=== PATIENT | female | born 1940 | race Caucasian/White ===

== ENCOUNTER 2017-05-21 15:54 | Emergency (ER) | payer MEDICARE ==
[2017-05-21] MEDS ORDERED: PROPOFOL 10 MG/ML 20ML VIAL IV ONE (16:25)
== END 2017-05-21 18:16 | disposition home or self-care (01) ==
LOC: EDH 15:54
DX: S73.004A Unspecified dislocation of right hip, initial encounter (principal); I10 Essential (primary) hypertension; E78.5 Hyperlipidemia, unspecified; Z88.2 Allergy status to sulfonamides; X58.XXXA Exposure to other specified factors, initial encounter; Y93.89 Activity, other specified; Y92.89 Other specified places as the place of occurrence of the external cause; Y99.8 Other external cause status
CPT/HCPCS: 27250; 72170; 73501; 96360; 96361; 99152; 99153; 99285; J2704

== ENCOUNTER 2019-05-18 10:59 | Observation (INO) | payer MEDICARE ==
[2019-05-18] VITALS (13 sets, daily range): BP systolic 92–159; BP diastolic 55–81
[2019-05-18] MEDS ORDERED: ETOMIDATE 2 MG/ML 10 ML VIAL ONE (12:31)
[2019-05-18 14:09] LABS: BASOPHILS % (AUTO) 0.4 % (0.0-5.0); EOSINOPHILS % (AUTO) 0.4 % (0.0-8.0); HEMATOCRIT 37.9 % (36-48); LYMPHOCYTES % (AUTO) 7.1 % (21.0-51.0); MEAN CORPUSCULAR HEMOGLOBIN 22.2 pg (27.0-33.0); MEAN CORPUSCULAR HGB CONC 29.8 g/dL (32.0-36.0); MEAN CORPUSCULAR VOLUME 74.3 fL (79-99); MONOCYTES % (AUTO) 4.9 % (3.0-13.0); NEUTROPHILS % (AUTO) 86.6 % (40.0-77.0); PLATELET COUNT (AUTO) 202 K/uL (130-400); RED CELL DISTRIBUTION WIDTH 15.1 % (11.0-15.5); WHITE BLOOD COUNT (AUTO) 10.8 K/uL (4.8-10.8)
[2019-05-18 14:13] LABS: CREATININE 0.6 mg/dL (0.5-1.5)
[2019-05-18 14:14] LABS: INR 1.06 (0.85-1.15); PARTIAL THROMBOPLASTIN TIME 24.3 SEC (26.3-35.5); PROTHROMBIN TIME 11.1 SEC (9.6-11.6)
[2019-05-18 14:21] LABS: ALBUMIN 3.3 g/dL (3.5-5.0); BILIRUBIN,TOTAL 0.3 mg/dL (0.2-1.0); TOTAL PROTEIN, SERUM 6.5 g/dL (6.0-8.3)
[2019-05-18] MEDS ORDERED: PROPOFOL 10 MG/ML 20ML VIAL IV ONE (15:35)
[2019-05-18] MEDS ORDERED: FENTANYL CITRATE PF 50 MCG/1 ML 2ML VIAL ONE (15:36)
[2019-05-18] MEDS ORDERED: LIDOCAINE PF 2% 5ML ABBOJECT ONE (15:37)
[2019-05-18] MEDS ORDERED: MIDAZOLAM HCL 1 MG/ML 2ML VIAL ONE (15:41)
[2019-05-18] MEDS ORDERED: LISI2.5T2 PO (18:23)
[2019-05-18] MEDS ORDERED: PRAV10TA39 PO (18:23)
[2019-05-18] MEDS ORDERED: ATEN-188 PO (18:23)
[2019-05-18] MEDS ORDERED: LEVO125T11 PO (18:23)
--- NOTE | 2019-05-18 19:20 | NUR ---
discharge instructions discharge instructions given to patient and patients , both verbalize understanding via teach back, discontinued saline lock left forearm ,no redness or swelling noted, apply 2x2, discharge home via wheel chair accompanied by , immbolizer to rle intact
== END 2019-05-18 19:33 | disposition home or self-care (01) ==
LOC: EDH 10:59 → 4AH 16:45
PROVIDERS: ADMIT Orthopaedic Surgery; ATTEND Orthopaedic Surgery
DX: T84.020A Dislocation of internal right hip prosthesis, initial encounter (principal); E78.5 Hyperlipidemia, unspecified; I10 Essential (primary) hypertension; Z96.641 Presence of right artificial hip joint; Z79.899 Other long term (current) drug therapy; Z88.2 Allergy status to sulfonamides
CPT/HCPCS: 27266; 36415; 73502 ×2; 80053; 84484; 85025; 85610; 85730; 93005; 99284; A4606; G0378 ×3; J2001; J2250; J2704; J3010; J3490